=== PATIENT | female | born 1985 | race Caucasian/White ===

== ENCOUNTER 2019-01-09 08:53 | Emergency (ER) | payer OTHER ==
[~2019-01-09] VITALS: Ht 162.6 cm; Wt 93.0 kg
[~2019-01-09 08:53] MED LIST: BACTRIM DS TAB1 EACH PO; CIPRO500 MG PO; CIPROFLOXACIN500 M1 PO; GABAPENTIN 100100 MG PO; METAXALONE800 MG PO; MIRENA; MOTRIN 600 MG600 M1 OR; NAPROSYN500 MG; NOHOMEMEDICATIONS; TRAMADOL 50 MG50 MG PO; VISTARIL 25 MG25 M1 PO; ZANAFLEX4 MG PO
[2019-01-09] MEDS ORDERED: ROBAXIN 750 MG750 M1 PO (09:08)
[2019-01-09] MEDS ORDERED: CELEBREX 200 M200 M1 PO (09:08)
[2019-01-09] MEDS ORDERED: VENTOLIN HFA 1818 GM INH (10:21)
[2019-01-09] MEDS ORDERED: AZITHROMYCIN 2250 MG PO ×2 (10:21)
[2019-01-09] MEDS ORDERED: MEDROLDOSEPACK PO ×2 (10:21)
[2019-01-09 10:28] VITALS: BP 141/87
== END 2019-01-09 10:29 | disposition home or self-care (01) ==
LOC: M.ERS 08:53
DX: J40 Bronchitis, not specified as acute or chronic (principal); M54.9 Dorsalgia, unspecified; G89.29 Other chronic pain; F17.210 Nicotine dependence, cigarettes, uncomplicated

== ENCOUNTER 2019-01-14 02:44 | Emergency (ER) | payer OTHER ==
[~2019-01-14] VITALS: Ht 162.6 cm; Wt 93.0 kg
[~2019-01-14 02:44] MED LIST changes: +AZITHROMYCIN 2250 MG PO; +CELEBREX 200 M200 M1 PO; +MEDROLDOSEPACK PO; +ROBAXIN 750 MG750 M1 PO; +VENTOLIN HFA 1818 GM INH
[2019-01-14 02:49] VITALS: BP 152/87
[2019-01-14] MEDS ORDERED: AMOXICILLIN 50500 MG PO (02:53)
[2019-01-14] MEDS ORDERED: NORCO 5-325 TA1 EACH PO (02:53)
== END 2019-01-14 02:58 | disposition home or self-care (01) ==
LOC: M.ERS 02:44
DX: H66.92 Otitis media, unspecified, left ear (principal); G89.29 Other chronic pain; M54.9 Dorsalgia, unspecified; F17.210 Nicotine dependence, cigarettes, uncomplicated

== ENCOUNTER 2019-03-18 18:16 | Emergency (ER) | payer OTHER ==
[~2019-03-18] VITALS: Ht 162.6 cm; Wt 93.0 kg
[~2019-03-18 18:16] MED LIST changes: +AMOXICILLIN 50500 MG PO; +NORCO 5-325 TA1 EACH PO
[2019-03-18 19:36] VITALS: BP 152/78
== END 2019-03-18 20:12 | disposition home or self-care (01) ==
LOC: M.ERS 18:16
DX: S60.022A Contusion of left index finger without damage to nail, initial encounter (principal); S60.032A Contusion of left middle finger without damage to nail, initial encounter; M41.9 Scoliosis, unspecified; F17.210 Nicotine dependence, cigarettes, uncomplicated; Z98.890 Other specified postprocedural states; W22.8XXA Striking against or struck by other objects, initial encounter; Y93.89 Activity, other specified; Y92.89 Other specified places as the place of occurrence of the external cause; Y99.8 Other external cause status

== ENCOUNTER 2019-08-13 17:27 | Emergency (ER) | payer OTHER ==
[~2019-08-13] VITALS: Ht 162.6 cm; Wt 93.0 kg
[2019-08-13] MEDS ORDERED: CELEBREX50 MG PO (17:46)
[2019-08-13] MEDS ORDERED: NORCO 5-325 TA1 EAC1 PO (18:59)
[2019-08-13] MEDS ORDERED: BACTRIM DS TAB1 EACH PO (18:59)
[2019-08-13 19:51] VITALS: BP 141/94
== END 2019-08-13 19:52 | disposition home or self-care (01) ==
LOC: M.ERS 17:27
DX: S91.331A Puncture wound without foreign body, right foot, initial encounter (principal); F17.210 Nicotine dependence, cigarettes, uncomplicated; W22.8XXA Striking against or struck by other objects, initial encounter; Y93.89 Activity, other specified; Y92.89 Other specified places as the place of occurrence of the external cause; Y99.8 Other external cause status